=== PATIENT | male | born 1940 | race Caucasian/White ===

== ENCOUNTER → 2018-05-27 14:30 | Outpatient (CLI) | payer MEDICARE, SELFPAY | PROVIDERS: PCP Emergency Medicine; Visit Provider Nurse Practitioner Gerontology | DX: N40.1 Benign prostatic hyperplasia with lower urinary tract symptoms (principal); N13.8 Other obstructive and reflux uropathy; R31.9 Hematuria, unspecified | CPT/HCPCS: 81003; 99213 ==

== ENCOUNTER 2018-11-09 00:40 | Outpatient (CLI) | payer MEDICARE, SELFPAY ==
--- NOTE | 2018-11-09 | PFT_ITS ---
PULMONARY FUNCTION TEST REPORT Patient identification - Salomón Beckman DATE OF - 42 DATE OF SERVICE - November 09, 2018 REQUESTING PROVIDER - Jony Whitley D.O. INTERPRETATION OF STUDY Spirometry shows moderately severe obstructive airways disease with no significant bronchodilator response. LUNG VOLUMES - Lung volumes show no evidence of restriction. There is mild hyperinflation and air trapping. DIFFUSION CAPACITY- Mildly reduced even when corrected to alveolar volume. AIRWAY RESISTANCE - Normal. IMPRESSION Moderately severe obstructive airways disease with no significant bronchodilator response. This is associated with mild hyperinflation and air trapping and mild diffusion defect. Clinical correlation recommended. When this study was compared to previous ones from 03/12/2017, the patient has a total of 320 cc decline in FVC and 210 cc decline in FEV1. Marie Cardozo M.D. SAHNTELLE/rex T - 11/10/2018
--- NOTE | 2018-11-09 07:29 | DI.RAD_ITS ---
SYMPTOM/DIAGNOSIS: DYSPNEA ON EXERTION, R06.09 PA AND LATERAL CHEST: Comparison is made with 10/28/17 and 03/09/18. Heart size and pulmonary vasculature are within normal limits. There is again seen a hiatal hernia. There is a stable area of scarring in the right lung base laterally. This has been seen on prior examinations including a CT scan from 04/03/14 and is chronic. No acute infiltrates, effusions or pneumothoraces are identified. The lungs appear hyperinflated consistent with underlying COPD. Degenerative changes are seen in the spine. IMPRESSION: 1. No acute pulmonary process. 2. COPD and stable pulmonary scarring.
[2018-11-09] MEDS: Inhaler, Assist Device 1 EACH MC (08:49)
[2018-11-09] MEDS: Albuterol HFA 18 GM 200 PUFF INH IH (08:49)
== END 2018-11-09 01:00 ==
PROVIDERS: PCP Emergency Medicine; Visit Provider Emergency Medicine
DX: R06.09 Other forms of dyspnea (principal); J44.9 Chronic obstructive pulmonary disease, unspecified; J98.4 Other disorders of lung
CPT/HCPCS: 94060; 94150; 94726; 94729; 71046

== ENCOUNTER 2018-11-23 07:52 | Outpatient (CLI) | payer MEDICARE, SELFPAY ==
[2018-11-23 09:44] LABS: Cholesterol 194 mg/dL (50-200); GGT 42 U/L (15-85); HDL Cholesterol 44 mg/dL (40-60); LDL CHOLESTEROL 134 mg/dL (<100); Triglyceride 92 mg/dL (30-150)
== END 2018-11-23 08:12 ==
PROVIDERS: PCP Emergency Medicine; Visit Provider Emergency Medicine
DX: R74.0 Nonspecific elevation of levels of transaminase and lactic acid dehydrogenase [LDH] (principal)
CPT/HCPCS: 36415; 80061; 83721; 82977

== ENCOUNTER 2019-07-14 10:27 | Outpatient (CLI) | payer MEDICARE, SELFPAY ==
[2019-07-14 15:14] LABS: ALT 35 U/L (16-63); AST 27 U/L (15-37); Albumin 3.8 g/dL (3.4-5.0); Alkaline Phosphatase 67 U/L (46-116); Anion Gap 9.4 mmol/L (3-11); BUN 18 mg/dL (7-18); Bilirubin, Total 0.7 mg/dL (0.2-1.0); CO2 27.6 mmol/L (21.0-32.0); CREATININE 1.18 mg/dL (0.70-1.30); Calcium 9.2 mg/dL (8.5-10.1); Chloride 104 mmol/L (98-107); Estimated GFR 59.86 (mL/min/1.73m2); Glucose 92 mg/dL (70-100); Potassium 4.8 mmol/L (3.5-5.1); Sodium 141 mmol/L (136-145); Total Protein 6.8 g/dL (6.4-8.2)
== END 2019-07-14 10:47 ==
PROVIDERS: PCP Emergency Medicine; Visit Provider Nurse Practitioner
DX: R55 Syncope and collapse (principal)
CPT/HCPCS: 36415; 80053

== ENCOUNTER 2019-07-14 11:53 | Outpatient (CLI) | payer MEDICARE, SELFPAY | END 2019-07-14 12:13 | PROVIDERS: PCP Emergency Medicine; Visit Provider Emergency Medicine | DX: I49.1 Atrial premature depolarization (principal); I47.1 Supraventricular tachycardia; I49.3 Ventricular premature depolarization | CPT/HCPCS: 93225 ==

== ENCOUNTER 2019-07-18 09:20 | Outpatient (CLI) | payer MEDICARE, SELFPAY ==
--- NOTE | 2019-07-18 17:28 | HOLTER_ITS ---
DATE OF DICTATION: July 18, 2019 Baseline rhythm sinus. Very frequent single PAC. One burst of SVT, 3-beat duration at 176 bpm. Frequent single PVC, 1839 total, 0.8% of total beat. 13 couplet. No VT. Nocturnal heart rates as low as 35 bpm, sinus bradycardia. SYMPTOMS: Fast heartbeat noted once during sinus rhythm 101 bpm. Average heart rate 99 bpm, range 70-141 bpm.
== END 2019-07-18 09:40 ==
PROVIDERS: PCP Emergency Medicine; Visit Provider Emergency Medicine
DX: I49.1 Atrial premature depolarization (principal); I47.1 Supraventricular tachycardia; I49.3 Ventricular premature depolarization
CPT/HCPCS: 93226

== ENCOUNTER 2019-10-03 13:16 | Outpatient (CLI) | payer MEDICARE, SELFPAY ==
--- NOTE | 2019-10-24 08:30 | W.ZIOMONITOR ---
Date of service: 10/24/19 Time of Service: 08:31 ZIO Patch Certified Nurse Aide Note: This is a 2-week ZIO patch ordered for the indication of syncope and collapse. ?The patient was in normal sinus rhythm for the majority of the recording. ?The patient had 11 episodes of supraventricular tachycardia with the longest lasting 11 beats. ?There were occasional (3.8%) isolated supraventricular ectopic beats. There were rare couplets and triplets. ?There were rare (less than 1%) isolated ventricular ectopic beats and rare couplets and triplets. ?There were no episodes of ventricular tachycardia, pauses greater than 3 seconds or high degree heart block. ?There is no evidence of atrial fibrillation. ?Patient reported events and triggered events were consistent with sinus rhythm as well as supraventricular ectopic beats and ventricular ectopic beats.
== END 2019-10-03 13:36 ==
PROVIDERS: PCP Emergency Medicine; Visit Provider Emergency Medicine
DX: R55 Syncope and collapse (principal); I47.1 Supraventricular tachycardia; I49.3 Ventricular premature depolarization
CPT/HCPCS: 0296T

== ENCOUNTER 2019-10-24 08:30 | Outpatient (CLI) | payer MEDICARE, SELFPAY | END 2019-10-24 08:50 | PROVIDERS: PCP Emergency Medicine; Referring Provider Emergency Medicine; Visit Provider Internal Medicine Cardiovascular Disease | DX: R55 Syncope and collapse (principal); I47.1 Supraventricular tachycardia; I49.3 Ventricular premature depolarization | CPT/HCPCS: 93228 ==

== ENCOUNTER 2019-11-03 07:13 | Outpatient (CLI) | payer MEDICARE, SELFPAY ==
--- NOTE | 2019-11-03 07:48 | DI.US_ITS ---
APPROVED REPORT EXAM: Comprehensive 2D, Doppler, and color-flow Echocardiogram Patient Location: Out-Patient Patent Chemist: Yesenia Solis RDCS (AE) Rhythm: NSR with frequent ectopy Indications: Syncope and collapse R55 Conclusion Left Ventricle : The left ventricle is normal size. Mild left ventricular hypertrophy. There is asyme tric thickening of the IVS. The left ventricular systolic function is normal. The left ventricular ej ection fraction is within the normal range. There is normal LV segmental wall motion. There is grade 1 diastolic dysfunction. LVEF is estimated to be 60-65%. Right Ventricle : The right ventricle generous in size. The right ventricular systolic function appea rs normal. Right ventricle is hypertrophied. Atria : Left atrium is mildly dilated. The right atrium size is normal. Aortic Valve : Aortic valve is trileaflet. There is moderate aortic annular sclerosis. The aortic va lve leaflets are moderately thickened and mild to moderately sclerotic. Mild aortic regurgitation. Mi ld aortic stenosis. Mitral Valve : Trace to mild mitral regurgitation. Mitral valve leaflets are mildly thickened. There is focal thickening of the AVML. Tricuspid Valve : The tricuspid valve leaflets are midly thickened but open well. Mild tricuspid regu rgitation. Great Vessels : The ascending aorta is dilated (4.2cm). IVC is normal in size and collapses >50% with inspiration. Mid RVSP is 37-40 mmHg. Echocardiogram from 2012 is unavailable for comparison. Wall motion Left Ventricle The left ventricle is normal size. The left ventricular systolic function is normal. The left ventric ular ejection fraction is within the normal range. Mild left ventricular hypertrophy. There is asymet rosina thickening of the IVS. There is normal LV segmental wall motion. There is grade 1 diastolic dysfu nction. LVEF is estimated to be 60-65%. Right Ventricle The right ventricle generous in size. The right ventricular systolic function appears normal. Right v entricle is hypertrophied. Atria Left atrium is mildly dilated. The right atrium size is normal. Aortic Valve Aortic valve is trileaflet. There is moderate aortic annular sclerosis. The aortic valve leaflets are moderately thickened and mild to moderately sclerotic. Mild aortic stenosis. Mild aortic regurgitati on. Mitral Valve Mitral valve leaflets are mildly thickened. There is focal thickening of the AVML. Trace to mild mitr al regurgitation. Tricuspid Valve The tricuspid valve leaflets are midly thickened but open well. Mild tricuspid regurgitation. Pulmonic Valve Pulmonic valve leaflets are midly thickened. There is no pulmonic valvular stenosis. Trace pulmonic r egurgitation. Great Vessels Aortic root is normal in size The ascending aorta is dilated (4.2cm). IVC is normal in size and colla pses >50% with inspiration. Mid RVSP is 37-40 mmHg. Pericardium A trivial anterior pericaridal effusion was identified. 2D Dimensions IVSd 1.45 cm M: 0.6-1.2 LV EDV A2C 67.9 mL PWd 1.30 cm M: 0.6 - 1.2 LV EDV A4C 56.6 mL LVDd 4.20 cm M: 4.2 - 5.8 LA Volume Index Biplane 39.8 mL/m2 LVDs 2.80 cm M: 2.5 - 4.0 LA Area A4C 23.73 cm2 Aortic Root 3.75 cm M: 3.1 - 3.7 LA Area A2C 23.53 cm2 RVID Base (AP4) 3.83 cm (M/F) 2.5-4.1 EF AP4 58.7 % RA Area A4C 13.94 cm2 EF AP2 62.0 % LVOT 2.25 cm (M/F) 1.5-2.5 EF BP 61.1 % Ascending Aorta 4.18 cm M: 2.6 - 3.4 IVC 1.77 cm LVEF (Teich) 61.9 % TAPSE 1.92 cm (M/F) <1.7 LVEF (Crane's) 61.06 % M: 52 - 72 LV Volume 49.78 mL M: 62 - 150 LV Volume Index 26.76 mL/m2 M: 34 - 74 FS 33.00 % LV Diastology E/A Ratio 0.8 MV E' medial 0.050 (>0.07 m/s) LV E/e MED 14.05 (<14) MV E' lateral 0.072 (>0.1 m/s) LV E/e LAT 9.75 (<14) PV S/D Ratio 0.88 A-A Duration 113.27 msec Aortic Valve LVOT Area 4.10 cm2 LVOT Vmax 0.87 m/s LVOT Mean David. 0.64 m/s LVOT Peak Gr. 3.0 mmHg AoV Area Vmax 1.46 cm2 LVOT Mean Gr. 1.8 mmHg AoV Area/ BSA (Vmax) 0.78 cm2/m2 LVOT VTI 0.205 m AoV Vmax 2.44 (0.5-1.3 m/s) SANJAY Mean David. Index 0.86 cm2/m2 AoV Mean David. 1.64 m/s AV DI 0.36 (>0.25) AoV Peak Grad 23.9 mmHg LVOT SV 83.97 mL AoV Mean Grad 12.4 (<5 mmHg) AoV VTI 0.495 (0.18-0.25 m) VTI Ratio 0.41 AoV Area VTI 1.70 (2.5-4.5 cm2) AoV Area/ BSA (VTI) 0.91 cm/m2 Mitral Valve MV E Max David. 0.71 (0.4-1.3 m/s) MV A Velocity 0.85 (0.4-1.3 m/s) E/A Ratio 0.82 MV Decel. Time 242 (160-240 msec) MV PHT 70 msec MVA PHT 3.10 cm2 Tricuspid Valve TV Regurg Vmax 3.05 m/s RAP Estimate 3.00 mmHg TR P. Gradient 37.1 mmHg RVSP 40.1 mmHg
== END 2019-11-03 07:33 ==
PROVIDERS: PCP Emergency Medicine; Visit Provider Emergency Medicine
DX: R55 Syncope and collapse (principal); I35.2 Nonrheumatic aortic (valve) stenosis with insufficiency; I50.1 Left ventricular failure, unspecified; I47.1 Supraventricular tachycardia; I10 Essential (primary) hypertension
CPT/HCPCS: 93306

== ENCOUNTER 2019-12-26 05:46 | Emergency (ER) | payer MEDICARE, SELFPAY ==
[2019-12-26 05:49] VITALS: BP 154/92; PULSE 91; RESP 21; TEMP 36.3; O2SAT 93
[2019-12-26 05:52] VITALS: RESP 23
--- NOTE | 2019-12-26 05:58 | ED.GENADUL_ITS ---
Discharge Plan Disposition Patient Disposition: AGAINST MEDICAL ADVICE Condition: Stable Discharge Details Chief Complaint: Chest Pain Clinical Impression: Chest pain Primary Care Provider: Jony Whitley ED Provider: Daljit Samuels Home Meds and New Rx's Prescriptions: Continued omeprazole 40 mg capsule,delayed release(DR/EC) 40 mg PO DAILY Qty: 90 RF: 3 hydrochlorothiazide 25 mg tablet 25 mg PO DAILY Qty: 90 RF: 3 sildenafil [Viagra] 50 mg tablet 50 mg PO DAILY PRN (Reason: sexual activity) Qty: 10 RF: 3 aspirin [Ecotrin] 325 MG tablet,delayed release (DR/EC) 1 tab PO DAILY RF: 0 ascorbic acid (vitamin C) [Vitamin C] 500 MG tablet extended release 1 tab PO DAILY RF: 0 CENTRUM SILVER TABLET 1 EACH tablet 1 tab PO DAILY RF: 0 (DME) Aerochamber Mini 1 EACH spacer 1 ea Miscellaneous DAILY Qty: 1 RF: 0 albuterol sulfate [ProAir HFA] 8.5 GM HFA aerosol inhaler 1 - 2 puff Inhalation Q6H PRN Qty: 1 RF: 6 metoprolol succinate [Toprol XL] 25 mg tablet extended release 24 hr 25 mg PO DAILY Qty: 90 RF: 3 budesonide-formoterol [Symbicort] 80-4.5 mcg/actuation HFA aerosol inhaler 2 puff IH BID Qty: 10.2 RF: 3 aspirin 81 mg Tablet,Chewable 81 mg PO DAILY RF: 0 Discharge Instructions Instructions: Chest Pain (ED) Additional Instructions: follow up with your primary care provider as soon as possible this week if you have worsening pain, difficulty breathing, vomit or feel more ill return to the emergency department Medical Decision Making 79 yo male with hx of prior smoking, htn, copd, no prior cardiac history per patietn,comes in with 20 minutes of burning sensation in his chest radiating to the jaw. Denies diaphoresis, shortness of breath,n/v. He denies having symptoms when he woke up started about 30-40 minutes after waking up and getting ready for the day. He is in no distress on exam speaking in full sentences. He has clear lung sounds, soft nontender abdomen, no jvd or significant pedal edema or calf tenderness. He is noted to have an oxygen saturation of 91% otherwise unremarkable vital signs. Will obtain troponin, ecg unremarkable. No tearing back pain so doubt dissection and normal vascular exam. Given the pain and hypoxia will obtain CTA to eval for PE. Pt's labs and imaging show no acute pathology other than the CTA showing coronary calcifications. He is pain free after a GI cocktail. I recommended admission for observation but he declined as he states he has a pet at home. He has capcaity to make his own decisions and understands the risks of leaving including potential permanent disability and . HE is declining also to stay for a 3 hours troponin as he has to go take care of a pet. He was advised if he changes his mind about not wanting to stay he can return at any time. I strongly encouraged he follow up with his pcp kendell. Differential Diagnosis Differential Diagnosis: nstemi, PE, gerd, gastritis Medical Records Medical records reviewed: Yes I reviewed the patient's medical records. ECG Data Attestation: I personally reviewed and interpreted this ECG (s) as follows: Prior ECG tracings: not available for review Interpretation: sinus rhythm, rate of 85, pr 156, no acute st t wave ischemic findings HPI General Mode of arrival: ambulatory . Date/Time Provider Initiated Documentation: 12/26/19 05:47 . Limitations to Documentation: no limitations . Information obtained by: patient . History of Present Illness 79 year old M presents to the emergency department with the chief complaint of chest pain, described as moderate, and it has been constant. No relieving factors improve symptom(s), No exacerbating factors reported . Patient did receive the following treatments prior to arrival, none Related Data Home Medications Medication Instructions Recorded Confirmed Centrum Silver Tablet 1 tab PO DAILY 02/21/13 12/26/19 ascorbic acid (vitamin C) [Vitamin 1 tab PO DAILY 02/21/13 12/26/19 C] aspirin [Ecotrin] 1 tab PO DAILY tab-cap 02/21/13 11/22/19 Aerochamber Mini #1 tab-cap 01/16/17 11/22/19 albuterol sulfate [ProAir HFA] 1 - 2 puff INHALATION Q6H PRN #1 03/16/18 11/22/19 inhaler omeprazole 40 mg capsule,delayed 40 mg PO DAILY #90 tab-cap 11/30/18 12/26/19 release metoprolol succinate 25 mg 25 mg PO DAILY #90 tab 10/25/19 12/26/19 tablet,extended release 24 hr budesonide-formoterol HFA 80 2 puff IH BID #10.2 gm 11/11/19 12/26/19 mcg-4.5 mcg/actuation aerosol inhaler hydrochlorothiazide 25 mg tablet 25 mg PO DAILY #90 tab 11/22/19 12/26/19 sildenafil 50 mg tablet 50 mg PO DAILY PRN #10 tab 11/22/19 11/22/19 aspirin 81 mg PO DAILY 12/26/19 12/26/19 Previous Rx's Medication Instructions Recorded albuterol sulfate [ProAir HFA] 1 - 2 puff INHALATION Q6H PRN #1 03/16/18 inhaler omeprazole 40 mg capsule,delayed 40 mg PO DAILY #90 tab-cap 11/30/18 release metoprolol succinate 25 mg 25 mg PO DAILY #90 tab 10/25/19 tablet,extended release 24 hr budesonide-formoterol HFA 80 2 puff IH BID #10.2 gm 11/11/19 mcg-4.5 mcg/actuation aerosol inhaler hydrochlorothiazide 25 mg tablet 25 mg PO DAILY #90 tab 11/22/19 sildenafil 50 mg tablet 50 mg PO DAILY PRN #10 tab 11/22/19 Allergies Allergy/AdvReac Type Severity Reaction Status Date / Time oxycodone Allergy Severe Anaphylaxsi Verified 11/22/19 07:44 s amlodipine AdvReac Intermediate edema Verified 11/22/19 08:11 ibuprofen AdvReac Intermediate GI UPSET Verified 11/22/19 07:44 aspirin AdvReac Unknown GI UPSET Verified 11/22/19 07:44 General Stated Complaint: Chest Pain JARRED: 2 Review of Systems All systems reviewed & are unremarkable except as noted in HPI and below Constitutional Constitutional: Denies chills, Denies fever(s) and Denies weakness Cardiovascular Cardiovascular: Denies dyspnea Respiratory Respiratory: Denies cough and Denies dyspnea Gastrointestinal Gastrointestinal: Denies abdominal pain, Denies nausea and Denies vomiting Musculoskeletal Musculoskeletal: Denies joint swelling Neurologic Neurologic: Denies weakness Psychiatric Psychiatric: Denies depression [facility] Medical History (Updated 12/26/19 @ 06:56 by Daljit Samuels MD) Alcohol abuse (Acute 02/22/13) Blindness, one eye (Acute) O.D.; 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 Possible TIA 2012 Diverticulosis of colon without diverticulitis (Acute) Elev transaminase/LDH (Acute) Emphysema lung (Acute 08/04/14) see CT on 2013 PFT's 2017 Essential hypertension (Acute 08/22/13) Fatty liver (Acute) Gastroesophageal reflux disease (Acute) Hematuria (Acute 11/16/15) [address] [place] [address] neg work up 2 Hiatal hernia (Acute 11/18/17) History of tobacco use (Acute) History of tobacco use (Acute) Hyperlipidemia (Acute 02/22/13) Knee pain (Acute) DJD-bilateral Osteopenia (Acute) Polyp of colon (Acute) Rotator cuff rupture (Acute 09/17/03) right Sensorineural hearing loss, bilateral (Acute 04/27/14) Tear of right rotator cuff (Acute 09/17/03) right Tinnitus (Acute 04/27/14) Vitiligo (Acute) Surgical History (Updated 03/24/19 @ 12:35 by William Joseph) Appendectomy (~1986) Meniscectomy RIGHT PARTIAL Family History Mother Essential hypertension Heart disease Hyperlipidemia Father Cerebellar hemorrhage Sister Personal history of malignant neoplasm Sister Cerebellar hemorrhage Sister Cerebellar hemorrhage Brother Essential hypertension Hyperlipidemia Brother Cerebellar hemorrhage Grandfather Essential hypertension Hyperlipidemia Grandfather Essential hypertension Hyperlipidemia Grandmother No problems noted. Grandmother No problems noted. Social History (Updated 07/20/18 @ 07:34 by Moni Barrios) Smoking/Tobacco Use Status: Former Tobacco Use Alcohol Intake: current Alcohol Intake frequency: 0-2 drinks per day Drug use: Never Household members: other Details: 2 Duration: 45-60 minutes/day Frequency: 3-4 times per week Do you feel safe at home: Yes Do you feel safe in your relationship?: Yes Additional Social history: [employer] [place] [employer] Exam Const General: no acute distress Orientation: alert HENMT Head: normal to inspection Ears: external ears normal General nose exam: external nose normal Mouth: moist mucous membranes Eyes General: appearance normal, both eyes and all related structures Neck Neck: normal visual inspection Resp Effort & Inspection: normal respiratory effort and able to speak in complete sentences Cardio Rate: regular rate GI Palpation: soft and nontender Skin General skin exam: no rashes or lesions noted Neuro General: alert and oriented x3 Extrem General: normal to inspection Psych Mental Status: mental status grossly normal Course Vital Signs Vital signs: Vital Signs Temperature 36.3 C L 12/26/19 05:49 Pulse 91 H 12/26/19 05:49 Respiratory Rate 21 12/26/19 05:49 Blood Pressure 154/92 H 12/26/19 05:49 Pulse Oximetry 93 L 12/26/19 05:49 Temperature 36.3 C L 12/26/19 05:49 Temperature Source Skin 12/26/19 05:49 Pulse 91 H 12/26/19 05:49 Respiratory Rate 23 12/26/19 05:52 Respiratory Effort 12/26/19 05:52 Respiratory Depth Normal 12/26/19 05:52 Respiratory Pattern Normal 12/26/19 05:52 Blood Pressure 154/92 H 12/26/19 05:49 Blood Pressure Position Supine 12/26/19 05:49 Pulse Oximetry 93 L 12/26/19 05:49 Oxygen Delivery Method Room Air 12/26/19 05:49 Oxygen Flow Rate 0 12/26/19 05:49 Pain Level 3 12/26/19 05:49
[2019-12-26] MEDS: Normal Saline Flush 10 ML SYR IVP (06:04)
[2019-12-26] MEDS: Aspirin E.C. 325 MG TABEC PO (06:04)
[2019-12-26 06:07] LABS: Abs Immature Grans 0.03 k/cumm (0.0-0.09); Absolute Basophil Count 0.03 k/cumm (0.0-0.2); Absolute Eosinophil Count 0.11 k/cumm (0.0-0.7); Absolute Lymphocyte Count 2.03 k/cumm (1.2-3.4); Absolute Monocyte Count 0.89 k/cumm (0.11-0.7); Absolute Neutrophil Count 2.91 k/cumm (1.2-6.7); Basophils % 0.5; Eosinophils % 1.8; HCT 47.1 % (40.0-50.0); HGB 15.4 g/dL (13.5-17.5); Immature Grans % 0.5 %; Lymphocytes % 33.8; Mean Corp. HGB Concentration 32.7 g/dL (32.0-36.0); Mean Corpuscular Volume 97.9 fL (80-95); Mean Platelet Volume 10.1 fL (8.0-11.0); Monocytes % 14.8; Neutrophils % 48.6; Platelet Count 254 x1000/uL (130-400); RBC 4.81 m/cumm (4.50-6.00); RBC Distribution Width 12.9 % (11.8-14.1)
[2019-12-26] MEDS: Omnipaque 350 MG/ML 100 ML BTL IJ (06:08)
--- NOTE | 2019-12-26 06:30 | DI.CT_ITS ---
EXAM: CT CHEST PE CTA CLINICAL HISTORY: chest pain, hypoxia. TECHNIQUE: Imaging Protocol: Axial CT angiography was performed with multi-slice acquisition and mu lti-planar and/or 3D reconstructions. CONTRAST MATERIAL: Intravenous: Omnipaque 350 Contrast volume:100 mL COMPARISON: CHEST WITH CONTRAST from 04/03/2014 FINDINGS: Pulmonary Arteries: No evidence of filling defect to suggest pulmonary emboli. Tracheobronchial tree: Patent where visualized. Mediastinum and Lexus: No dominant adenopathy or fluid collection. Pulmonary parenchyma: Moderately severe centrilobular emphysematous changes. Dependent atelectasis o r scarring. No focal consolidating infiltrates. Pleura: No effusion or pneumothorax. Heart: The heart is not dilated. Moderately severe coronary artery calcification. No pericardial eff usion. Aorta: Thoracic aorta non-dilated. No aneurysm or dissection. Upper abdomen: Large hiatal hernia. Bones: Degenerative changes present. Tubes, Catheters, and Lines: None. IMPRESSION: No evidence of pulmonary embolism, thoracic aortic dissection or aneurysm. DATA REPOSITORY: All CT scans at this facility are submitted to the National Radiology Data Registry (NRDR) Dose Index Registry (DIR) with the [employer] (ACR). RADIATION OPTIMIZATION: All CT scans at this facility use at least one of these dose optimization te chniques: automated exposure control; mA and/or kV adjustment per patient size (includes targeted exa ms where dose is matched to clinical indication); or iterative reconstruction.
[2019-12-26 06:35] LABS: ALT 24 U/L (16-63); AST 30 U/L (15-37); Albumin 3.5 g/dL (3.4-5.0); Alkaline Phosphatase 57 U/L (46-116); Anion Gap 5.6 mmol/L (3-11); BUN 13 mg/dL (7-18); Bilirubin, Total 0.5 mg/dL (0.2-1.0); CO2 32.4 mmol/L (21.0-32.0); CREATININE 1.01 mg/dL (0.70-1.30); Calcium 8.3 mg/dL (8.5-10.1); Chloride 103 mmol/L (98-107); Glucose 103 mg/dL (74-106); Lipase 155 U/L (73-393); Magnesium 1.9 mg/dL (1.8-2.4); NT-proBNP 23 pg/mL (<300); PTT Activated 22.9 sec (21.0-31.4); Potassium 4.1 mmol/L (3.5-5.1); Prothrombin Time 10.4 sec (9.3-11.0); Sodium 141 mmol/L (136-145); Total Protein 6.6 g/dL (6.4-8.2)
[2019-12-26 06:42] LABS: Troponin I < 0.05 ng/Ml (<0.06)
--- NOTE | 2019-12-26 06:48 | DI.VRAD_ITS ---
PROCEDURE INFORMATION: Exam: CT Angiography Chest With Contrast Exam date and time: 12/26/2019 6:21 AM Age: 79 years old Clinical indication: Type not specified; Patient HX: Chest pain, hypoxia TECHNIQUE: Imaging protocol: Computed tomographic angiography of the chest with intravenous contrast. 3D rendering: MIP and/or 3D reconstructed images were created by the technologist. Radiation optimization: All CT scans at this facility use at least one of these dose optimization techniques: automated exposure control; mA and/or kV adjustment per patient size (includes targeted exams where dose is matched to clinical indication); or iterative reconstruction. Contrast material: OMNIPAQUE 350; Contrast volume: 100 ml; Contrast route: IV RAC; COMPARISON: CT CHEST WITH CONTRAST 04/03/2014 12:38 PM FINDINGS: Pulmonary arteries: No pulmonary emboli. Aorta: No aortic aneurysm. No aortic dissection. Lungs: Emphysema and mild subsegmental atelectasis versus scarring No consolidation. No masses. Pleural space: No pneumothorax. No pleural effusion. Heart: Coronary calcifications noted. No cardiomegaly. No pericardial effusion. Lymph nodes: No enlarged lymph nodes. Bones/joints: Degenerative changes in the spine No acute fracture. Soft tissues: Unremarkable. Large hiatal hernia IMPRESSION: No pulmonary emboli Large hiatal hernia Coronary artery disease Dictated and Authenticated by: René Rizzo MD. Ordering:ALE Bocanegra MD
[2019-12-26 07:04] VITALS: BP 132/78; PULSE 95; RESP 23; O2SAT 94
== END 2019-12-26 07:05 | disposition left against medical advice (07) ==
PROVIDERS: Emergency Provider Emergency Medicine; PCP Emergency Medicine
DX: R09.02 Hypoxemia (principal); R07.9 Chest pain, unspecified; J44.9 Chronic obstructive pulmonary disease, unspecified; Z87.891 Personal history of nicotine dependence; Z53.29 Procedure and treatment not carried out because of patient's decision for other reasons; I10 Essential (primary) hypertension
CPT/HCPCS: 36415; 71275; 80053; 83690; 93005; 99285; 83735; 83880; 84484; 85025; 85610; 85730; 93010; J3490

== ENCOUNTER 2020-06-07 00:47 | Outpatient (CLI) | payer MEDICARE, SELFPAY ==
--- NOTE | 2020-06-07 06:15 | DI.CT_ITS ---
EXAM: CT ABDOMEN PELVIS W CLINICAL HISTORY: abdominal pain,R10.9. TECHNIQUE: Imaging Protocol: Axial computed tomography images with coronal and sagittal reformatted images were created and reviewed CONTRAST MATERIAL: Intravenous: Omnipaque 350 Contrast volume:structured data in ml Oral: yes / no COMPARISON: CT RENAL COLIC WO CONTRAST from 05/15/[address] CHEST PE CTA from 12/26/2019 FINDINGS: There is a large hiatal hernia containing fat and the superior portion of the stomach. The heart siz e is normal. Lung bases show emphysematous changes. The liver, gallbladder, spleen, pancreas, adren als and kidneys are unremarkable. Diverticulosis is noted in the descending and sigmoid colon. Ther e are prominent diverticula and wall thickening in the mid sigmoid. There is scarring seen between t he sigmoid colon and bladder. This appears unchanged when compared with 2009 exam. No air is seen w ithin the bladder. There is diffuse bladder wall thickening. The prostate is enlarged. There are s mall bilateral fatty containing inguinal hernias. There is tiny fatty containing umbilical hernia. The colon is nearly free of stool. Small bowel is not dilated. The vertebral bodies are well mainta ined in height. There are mild degenerative disc changes and mild facet degenerative changes. Impression: Prominent sigmoid diverticulosis without definite evidence of diverticulitis. Stable area of scarrin g between the sigmoid colon and bladder. Diffuse bladder wall thickening and prostate enlargement . Hiatal hernia. RADIATION DOSE DELIVERED: 1,074.6mGy.cm Total DLP DATA REPOSITORY: All CT scans at this facility are submitted to the National Radiology Data Registry (NRDR) Dose Index Registry (DIR) with the [employer] (ACR). RADIATION OPTIMIZATION: All CT scans at this facility use at least one of these dose optimization te chniques: automated exposure control; mA and/or kV adjustment per patient size (includes targeted exa ms where dose is matched to clinical indication); or iterative reconstruction.
[2020-06-07 08:01] LABS: Abs Immature Grans 0.03 10^3/uL (0.0-0.06); Absolute Basophil Count 0.03 10^3/uL (0.0-0.2); Absolute Eosinophil Count 0.07 10^3/uL (0.0-0.7); Absolute Lymphocyte Count 1.83 10^3/uL (1.2-3.4); Absolute Monocyte Count 0.79 10^3/uL (0.1-0.8); Absolute Neutrophil Count 3.54 10^3/uL (1.2-6.7); Basophils % 0.5; Eosinophils % 1.1; HCT 47.5 % (40.0-50.0); HGB 15.2 g/dL (13.5-17.5); Immature Grans % 0.5; Lymphocytes % 29.1; MCH 31.6 pg (27.0-33.0); MCV 98.8 fL (80-95); MPV 10.5 fL (8.0-11.0); Monocytes % 12.6; Neutrophils % 56.2; Nucleated RBC 0 %; Platelet Count 243 10^3/uL (130-400); RBC 4.81 10^6/uL (4.36-5.78); RDW 14.2 % (11.8-14.1); RDW-SD 51.9 fL; WBC 6.29 10^3/uL (4.4-10.8)
[2020-06-07] MEDS: Omnipaque 350 MG/ML 50 ML BTL PO (08:01)
[2020-06-07 08:46] LABS: ALT 26 U/L (16-63); AST 25 U/L (15-37); Albumin 3.4 g/dL (3.4-5.0); Alkaline Phosphatase 60 U/L (46-116); Amylase 40 U/L (25-115); Anion Gap 6.3 mmol/L (3-11); BUN 13 mg/dL (7-18); Bilirubin, Total 0.7 mg/dL (0.2-1.0); CO2 32.7 mmol/L (21.0-32.0); CREATININE 0.97 mg/dL (0.70-1.30); Calcium 8.5 mg/dL (8.5-10.1); Chloride 100 mmol/L (98-107); Glucose 103 mg/dL (74-106); Lipase 130 U/L (73-393); Potassium 4.3 mmol/L (3.5-5.1); Sodium 139 mmol/L (136-145); Total Protein 6.8 g/dL (6.4-8.2)
[2020-06-07] MEDS: Omnipaque 350 MG/ML 100 ML BTL IJ (09:33)
[2020-06-07] MEDS: Normal Saline Flush 10 ML SYR IVP (09:34)
[2020-06-07] MEDS: Normal Saline - Diluent 50 ML VIAL IV (09:34)
== END 2020-06-07 01:07 ==
PROVIDERS: PCP Emergency Medicine; Visit Provider Emergency Medicine
DX: K57.30 Diverticulosis of large intestine without perforation or abscess without bleeding (principal); K44.9 Diaphragmatic hernia without obstruction or gangrene; R10.9 Unspecified abdominal pain
CPT/HCPCS: 80053; 83690; 74177; 82150; 85025; J3490; Q9967

== ENCOUNTER → 2020-07-11 12:53 | Outpatient (BNVA) | payer MEDICARE, SELFPAY | PROVIDERS: PCP Emergency Medicine; Referring Provider Emergency Medicine; Visit Provider Surgery | DX: R10.11 Right upper quadrant pain (principal); R19.7 Diarrhea, unspecified; R14.0 Abdominal distension (gaseous) | CPT/HCPCS: 99202; 99213 ==

== ENCOUNTER 2020-07-20 03:03 | Outpatient (CLI) | payer MEDICARE, SELFPAY ==
[2020-07-21 21:10] LABS: COVID-19 RT-PCR Result NEGATIVE (Negative)
== END 2020-07-20 03:23 ==
PROVIDERS: PCP Emergency Medicine; Visit Provider Surgery
DX: Z11.59 Encounter for screening for other viral diseases (principal); Z01.818 Encounter for other preprocedural examination
CPT/HCPCS: U0003

== ENCOUNTER 2020-07-23 07:06 | Day surgery (SDC) | payer MEDICARE, SELFPAY ==
[2020-07-23 07:26] VITALS: BP 127/87; PULSE 95; RESP 16; TEMP 36.5; O2SAT 95
[2020-07-23] MEDS: Lactated Ringers 1,000 ML 80 ML IV (08:08)
--- NOTE | 2020-07-23 09:10 | STOM_PTH ---
PATIENT: ION DAVID LOC: [facility] U#:[id number] AGE/SX: 79/M ROOM: RE07/23/[address]: Bernice Sheldon : 1940 BED: DIS: 07/23/2020 SPEC #: [id number] RECD: 07/23/20 12:58 STATUS: CEFERINO REQ #: [id number] PARI: 07/23/20 09:[address]: Bernice Sheldon DEPT: Surgical Specimen RECD BY: Sharon Otto ENTERED: 07/23/20 12:58 SP TYPE: STOMACH OTHR DR: Jony Whitley DO Tissues: 1 - BIOPSY BOWEL 2 - STOMACH BIOPSY 3 - STOMACH BIOPSY 4 - ESOPHAGUS BIOPSY 5 - ESOPHAGUS BIOPSY Procedures: GROSS AND MICRO LEVEL 4 Comments: [id number]
--- NOTE | 2020-07-23 09:50 | ENDO_ITS ---
Date of service: 07/23/20 Time of Service: 09:50 Endoscopy Report DATE OF PROCEDURE: 07/23/20 PRE-OP DIAGNOSIS: epigastric pain POST-OP DIAGNOSIS: other (gsatritis/bile reflux/hiatal hernia) PROCEDURE: egd w/ bx SURGEON: Bernice Sheldon ANESTHESIA: GETA ESTIMATED BLOOD LOSS: 1 PATHOLOGY: other COMPLICATIONS: None DISPOSITION: same day PROCEDURE DESCRIPTION: After informed consent was obtained the patient was take to the procedure room and placed in a supine position. Monitors were applied and a time out was done. The patients name, date of , procedure type, allergies to medications and metal in their body was reviewed. A bite block was placed and the patient was sedated. Once sedated and comfortable the gastroscope was advanced through the oropharynx which was grossly normal into the esophagus. The proximal and mid- esophagus were nl. In the distal esophagus there was: Esophageal erosions varices or diverticulim or stricture. He does have a small hiatal hernia. The scope was advanced into the stomach and through the pylorus into the 3rd portion of the duodenum. The duodenum was noted to be nl. Biopsies were done - duodenum, greater curvature, antrum, GE junction, distal esophagus. All speci mens are retrieved and no bleeding is noted. He also has bile reflux from the duodenum into the antral region of the stomach. There is some mild antral gastritis noted as well.. The scope was retracted back into the stomach and biopsies were done to rule out H. pylori. There were no ulcers. The scope was retroflexed. The cardia and fundus were noted to be normal. There small a hiatal hernia noted. The scope was retracted back into the esophagus and biopsies were done of the GE junction to rule out Beard's. The Z line was regular. The GE junction was at 35 cm.
--- NOTE | 2020-07-23 09:53 | W.COLOREPORT ---
Date of service: 07/23/20 Time of Service: 09:53 Colonoscopy Report Prep: Miralax/Dulcolax Procedure Description: After informed consent was obtained the patient was taken to the procedure room and placed in a left decubitous position. Monitors were applied and a time out was done. The patients name, date of , procedure, allergies to medications and metal in their body was reviewed. The patient was then sedated. Once sedated and comfortable a rectal exam was done. External exam was normal. Internal exam revealed a normal sphincter tone and no palpable masses. The prostate nl The scope was then introduced and retrofelexed. no internal hemorrhoids were identified. Insufflation is begun. The scope was passed up to the rectosigmoid pelvis. Once we get to 30 cm I encountered significant resistance. I cannot pass the scope no further. He has multiple diverticula noted. There is no signs of any bleeding or infection. On CT it is noted that the sigmoid colon is adhered to the bladder with significant scarring. After multiple maneuvers are attempted, I am not able to pass the scope through this area. The scope was abandoned for patient safety and patient will be scheduled for. Spotting turning it to be especially with the scope was removed and the patient was woken up and taken back to Same day surgery in stable condition. The patient tolerated the procedure well and there were no immediate complications. Pt will have a BE for completeness.
--- NOTE | 2020-07-23 10:00 | W.PM.DSUDISC ---
Discharge Plan Disposition Patient Disposition: HOME Condition: Good Discharge Details Reason For Visit: stomach and colon scope Attending Provider: Bernice Sheldon Primary Care Provider: Jony Whitley Home Meds and New Rx's Prescriptions: New sucralfate [Carafate] 1 gram tablet 1 g PO QACHS Qty: 120 RF: 12 Continued hydrochlorothiazide 25 mg tablet 25 mg PO DAILY Qty: 90 RF: 3 sildenafil [Viagra] 50 mg tablet 50 mg PO DAILY PRN (Reason: sexual activity) Qty: 10 RF: 3 CENTRUM SILVER TABLET 1 EACH tablet 1 tab PO DAILY RF: 0 (DME) Aerochamber Mini 1 EACH spacer 1 ea Miscellaneous DAILY Qty: 1 RF: 0 albuterol sulfate [ProAir HFA] 8.5 GM HFA aerosol inhaler 1 - 2 puff Inhalation Q6H PRN Qty: 1 RF: 6 metoprolol succinate [Toprol XL] 25 mg tablet extended release 24 hr 25 mg PO DAILY Qty: 90 RF: 3 omeprazole 40 mg capsule,delayed release(DR/EC) 40 mg PO DAILY Qty: 90 RF: 3 budesonide-formoterol [Symbicort] 80-4.5 mcg/actuation HFA aerosol inhaler 2 puff IH BID Qty: 10.2 RF: 3 acetaminophen [Acetaminophen Extra Strength] 500 mg Tablet 1,000 mg PO Q6H PRNRF: 0 Discontinued ascorbic acid (vitamin C) [Vitamin C] 500 MG tablet extended release 1 tab PO DAILY RF: 0 Discharge Instructions Additional Instructions: Findings:hiatal hernia bile reflux gastritis diverticula stricture Follow up: F/u judy in 2-3 wks BE US Please call if you develop: fevers >101.5 Nausea or Vomiting Abdominal pain that is not transient DAY SURGERY UNIT POST COLONOSCOPY INSTRUCTIONS 1. Because there will be medication in your system for the next 24 hours, you may feel a little sleepy. Your coordination will be affected. Therefore: a. Do not drive or operate dangerous equipment for 24 hours. b. Do not drink alcohol beverages for 24 hours (not even beer). c. Plan to go home and rest for the day. 2. Generally there are no restrictions on your activity after a day or so has gone by, but you may feel a bit fatigued for a few days. 3 After you arrive home you may have a light meal and return to a normal diet as you can tolerate it without feeling sick to your stomach. 4. After surgery, you may feel pain or discomfort. This should be only transient, but if it persists please contact your doctor. 5. If there are any questions regarding the findings of your procedure, please feel free to contact your doctor. 6. If you are unable to contact your doctor with a problem, contact the hospital at [phone]. 7. Continue all your regular medications unless directed otherwise. I understand the above instructions and have no questions. Signature of Patient or Responsible Adult Escort Date/Time Name of Responsible Adult Escort Signature of Nurse Date/Time Activity:: No strenuous activity or lifting over 20 pounds x 24 hours Diet:: Small light meals x24 hours no Discharge Orders Discharge Orders: Discharge Order (Routine); Ordered 07/22/20 Ordered By: Bernice Sheldon DS: Diagnosis Discharge Diagnosis (1) Hiatal hernia without gangrene and obstruction: Status: Acute (2) Bile reflux gastritis: Status: Acute (3) Diverticula of colon: Status: Acute
[2020-07-23 10:20] VITALS: BP 109/74; PULSE 78; RESP 20; TEMP 36.3; O2SAT 94
== END 2020-07-23 11:15 | disposition home or self-care (01) ==
PROVIDERS: PCP Emergency Medicine; Visit Provider Surgery
PROC: (CPT 43239; principal; 2020-07-23 08:30)
DX: R14.0 Abdominal distension (gaseous) (principal); K57.30 Diverticulosis of large intestine without perforation or abscess without bleeding; Z53.09 Procedure and treatment not carried out because of other contraindication; R10.11 Right upper quadrant pain; Z87.11 Personal history of peptic ulcer disease; K66.0 Peritoneal adhesions (postprocedural) (postinfection); K44.9 Diaphragmatic hernia without obstruction or gangrene; K29.60 Other gastritis without bleeding
CPT/HCPCS: 43239; 45330; 88305; J2001

== ENCOUNTER 2020-08-01 01:39 | Outpatient (CLI) | payer MEDICARE, SELFPAY ==
--- NOTE | 2020-08-01 11:45 | DI.RAD_ITS ---
EXAM: RF BARIUM ENEMA CLINICAL HISTORY: attempted colonoscopy,stricture COMPARISON: No exams were available for comparison TECHNIQUE: 2D and realtime digital imaging was performed. CONTRAST MATERIAL: Barium contrast was administered. FINDINGS: Preliminary view of the abdomen shows no evidence of bowel obstruction. Degenerative changes are see n in the spine. The colon demonstrates no structural abnormalities including stricture,dilation, adhesion, or mass. Scattered diverticula are present throughout the colon. There are most marked in the descending and sigmoid colon. The terminal ileum is identified and appears unremarkable. IMPRESSION: Colonic diverticulosis. No stricture or obstruction. RADIATION DOSE DELIVERED: 1 minute and 3 seconds of Fluoroscopy time.
== END 2020-08-01 01:59 ==
PROVIDERS: PCP Emergency Medicine; Visit Provider Surgery
DX: K57.30 Diverticulosis of large intestine without perforation or abscess without bleeding (principal)
CPT/HCPCS: 74270

== ENCOUNTER → 2020-08-17 13:45 | Outpatient (BNVA) | payer MEDICARE, SELFPAY | PROVIDERS: PCP Emergency Medicine; Referring Provider Emergency Medicine; Visit Provider Surgery | DX: Z48.815 Encounter for surgical aftercare following surgery on the digestive system (principal) | CPT/HCPCS: 99213 ==

== ENCOUNTER 2020-08-22 01:16 | Outpatient (CLI) | payer MEDICARE, SELFPAY ==
--- NOTE | 2020-08-22 07:15 | DI.US_ITS ---
EXAM: US ABDOMEN CLINICAL HISTORY: postprandial RUQ pain and diarrhea,abd bloating,r10.11,r19.7,r10.9,r14.0 TECHNIQUE: Ultrasound abdomen performed using standard protocol. COMPARISON: CT CT ABDOMEN PELVIS W from 06/07/2020 FINDINGS: ABDOMINAL AORTA AND IVC: Visualized portions normal caliber. PANCREAS: Normal where visualized. LIVER: Normal. Hepatopedal flow in the Portal Vein. The liver measures 15.2 cm in length. There is a question of an isoechoic mass in the anterior segment of the right lobe of the liver adjacent to the gallbladder. GALLBLADDER: No evidence of cholelithiasis. No evidence of wall thickening. No pericholecystic fluid identified. BILIARY SYSTEM: Common bile duct measures < 7 mm. No intrahepatic biliary ductal dilation. SHI'S SIGN: Negative. KIDNEYS: Kidneys are symmetric in size. There is a 5 mm echogenic focus in the left kidney. This may represent a vascular calcification or nonobstructing stone. No evidence of hydronephrosis. No renal mass or cyst identified. SPLEEN: Not enlarged. ASCITES: None seen. IMPRESSION: Question of a 2.7 x 2.7 x 3 cm isoechoic mass in the anterior segment of the right lobe of the liver adjacent to the gallbladder. CT or MRI scan of the abdomen is recommended for further evaluation. DATA REPOSITORY:
--- NOTE | 2020-08-22 10:26 | W.PM.PROGNOT ---
Date of Service Date of service: 08/22/20 Time of Service: 10:26 Assessment and Plan Assessment and plan (1) Hiatal hernia without gangrene and obstruction: Status: Acute (2) Postprandial RUQ pain: Status: Acute Assessment and plan: Patient has been having vague nonspecific GI signs and symptoms. 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 I did order a ultrasound and to look at his gallbladder. He had a CT was done in May. There is some mild area of abnormality that was noted on the ultrasound. I think this is just possibly some scar tissue of where the abscess was. I did discuss it with Dr. Hodge. He actually has a quite a large hiatal hernia and I think that is what is contributing to his symptoms. This can be ameliorated with diet and lifestyle modification and avoiding overeating and large meals at nighttime. (3) Abdominal pain: Status: Acute (4) Abscess of liver: Status: Acute
== END 2020-08-22 01:36 ==
PROVIDERS: PCP Emergency Medicine; Visit Provider Surgery
DX: R93.5 Abnormal findings on diagnostic imaging of other abdominal regions, including retroperitoneum (principal); R10.11 Right upper quadrant pain; R10.9 Unspecified abdominal pain; R14.0 Abdominal distension (gaseous)
CPT/HCPCS: NC; 76700

== ENCOUNTER 2020-10-24 01:21 | Outpatient (CLI) | payer MEDICARE, SELFPAY ==
--- NOTE | 2020-10-24 06:45 | DI.NM_ITS ---
EXAM: NM HEPATOBILIARY CCK GRP CLINICAL HISTORY: postprandial ruq abd pain,r10.11. TECHNIQUE: Injected dose: 5 mCi Tc-99 mebrofenin Initial dynamic images: 60 minutes CCK administered = 1.4 micrograms COMPARISON: CT CT ABDOMEN PELVIS W from 06/07/2020 FINDINGS: There is normal uptake and excretion of radiopharmaceutical by the liver and activity is seen within the gallbladder lumen starting at 11 minutes. In response to CCK infusion there is a 93 percent ejection fraction which is well within normal limit s. Concern here is an area of diminished uptake in the liver superior aspect subcapsular, possibly of a lesion. There did not appear to be a focal abnormality at this location on CT scan May 2020. IMPRESSION: 1. No evidence of obstructive of the cystic duct. 2. No evidence of gallbladder dysfunction. Normal ejection fraction demonstrated in response to CCK infusion. 3. Incidentally noted is a possible mass in the liver as seen by a prominent relatively photopenic zo ne. No abnormality was seen at this location on CT scan of May 2020. Follow-up imaging recommend ed SN guidelines: Gallbladder visualization should be present by 3 hours. Delayed [id number] marshall sit beyond 60 min raises the suspicion for partial common bile duct (CBD) obstruction. Gallbladder ejection fraction <35% has a good correlation with acalculous disease (i.e., chronic acal culous cholecystitis, cystic duct syndrome, sphincter of Oddi disease).
[2020-10-24] MEDS: Sincalide 5 MCG VIAL 1.4 MCG IJ (11:32)
== END 2020-10-24 01:41 ==
PROVIDERS: PCP Emergency Medicine; Visit Provider Emergency Medicine
DX: R10.11 Right upper quadrant pain (principal)
CPT/HCPCS: 78227

== ENCOUNTER 2021-01-09 04:32 | Outpatient (CLI) | payer MEDICARE, SELFPAY ==
[2021-01-09 10:35] LABS: Abs Immature Grans 0.08 10^3/uL (0.0-0.06); Absolute Basophil Count 0.04 10^3/uL (0.0-0.2); Absolute Lymphocyte Count 1.22 10^3/uL (1.2-3.4); Absolute Monocyte Count 1.25 10^3/uL (0.1-0.8); Absolute Neutrophil Count 5.55 10^3/uL (1.2-6.7); Basophils % 0.5; Eosinophils % 1.2; HCT 41.3 % (40.0-50.0); Lymphocytes % 14.8; MCH 26.4 pg (27.0-33.0); MCHC 31.5 % (32.0-36.0); MCV 83.9 fL (80-95); MPV 9.6 fL (8.0-11.0); Monocytes % 15.2; Neutrophils % 67.3; Nucleated RBC 0 %; Platelet Count 406 10^3/uL (130-400); RBC 4.92 10^6/uL (4.36-5.78); RDW 19.9 % (11.8-14.1); RDW-SD 57.8 fL; WBC 8.24 10^3/uL (4.4-10.8)
[2021-01-09 10:43] LABS: INR 1.4 (0.9-1.1); Prothrombin Time 13.7 sec (9.3-11.0)
[2021-01-09 11:34] LABS: ALT 211 U/L (16-63); AST 488 U/L (15-37); Albumin 2.8 g/dL (3.4-5.0); Alkaline Phosphatase 552 U/L (46-116); Anion Gap 11.5 mmol/L (3-11); BUN 11 mg/dL (7-18); CO2 28.5 mmol/L (21.0-32.0); CREATININE 0.6 mg/dL (0.70-1.30); Calcium 9.1 mg/dL (8.5-10.1); Chloride 96 mmol/L (98-107); Glucose 59 mg/dL (74-106); Potassium 4.7 mmol/L (3.5-5.1); Sodium 136 mmol/L (136-145); Total Protein 6.3 g/dL (6.4-8.2)
[2021-01-09 19:35] LABS: CEA 330.7 ng/mL (See Note)
[2021-01-11 09:08] LABS: AFP Tumor Marker 572.6 ng/mL (<8.1)
[2021-01-11 11:51] LABS: CA 19-9 1319 U/mL (<35)
== END 2021-01-09 04:33 | disposition home or self-care (01) ==
LOC: LBO 04:32
PROVIDERS: PCP Emergency Medicine; Visit Provider Physician Assistant Medical
DX: C22.0 Liver cell carcinoma (principal); R97.8 Other abnormal tumor markers
CPT/HCPCS: 36415; 80053; 82105; 82378; 85025; 85610; 86301